=== PATIENT | female | born 1985 | race Caucasian/White ===

== ENCOUNTER 2017-09-16 11:49 | Inpatient (IN) | payer BC ==
[~2017-09-16] VITALS: Ht 170.2 cm; Wt 108.4 kg
[2017-09-16 11:50] VITALS: BP_SYST 128
[2017-09-16] MEDS ORDERED: NACL 0.9% 1,000 ML IV ONE (12:28)
[2017-09-16] MEDS ORDERED: ONDANSETRON HCL 4 MG/2 ML VIAL IVP ONE (12:30)
[2017-09-16] MEDS ORDERED: KETOROLAC TROMETHAMINE 30 MG VIAL IVP ONE (12:45)
[2017-09-16 13:19] LABS: BASOPHILS # (AUTO) 0.2 K/uL (0.0-0.2); HEMATOCRIT 43.5 % (36-48); HEMOGLOBIN 14.4 g/dL (12.0-16.0); LYMPHOCYTES # (AUTO) 1.2 K/uL (1.0-5.5); LYMPHOCYTES % (AUTO) 9.8 % (20.5-51.5); MEAN CORPUSCULAR HEMOGLOBIN 31 pg (27-31); MEAN CORPUSCULAR HGB CONC 33 % (32-36); MEAN CORPUSCULAR VOLUME 92 fL (79.0-98.0); MONOCYTES # (AUTO) 0.4 K/uL (0.0-1.0); NEUTROPHILS # (AUTO) 10.5 K/uL (1.8-7.7); NEUTROPHILS % (AUTO) 85.2 % (40.0-70.0); PLATELET COUNT (AUTO) 331 K/uL (130-430); RED BLOOD CELL COUNT(AUTO) 4.71 MIL/uL (4.2-6.2); RED CELL DISTRIBUTION WIDTH 11.9 % (9.0-15.0); WHITE BLOOD COUNT (AUTO) 12.3 K/uL (4.8-10.8)
[2017-09-16 13:40] LABS: CALCIUM 9.9 mg/dL (8.4-11.0); CREATININE 0.65 mg/dL (0.55-1.30)
[2017-09-16 13:41] LABS: INR 1.1 (0.8-1.2); PROTHROMBIN TIME 10.8 SECS (9.5-12.5)
[2017-09-16 13:44] LABS: ALBUMIN 4.4 g/dL (3.4-4.8); TOTAL BILIRUBIN 0.6 mg/dL (0.0-1.0)
[2017-09-16 15:09] LABS: BLOOD, URINE NEGATIVE (NEGATIVE); CLARITY/URINE CLEAR (CLEAR); GLUCOSE,URINE NEGATIVE (NEGATIVE); KETONES,URINE 3+ (NEGATIVE); LEUKOCYTE ESTERASE ,URINE NEGATIVE (NEGATIVE); NITRITE, URINE NEGATIVE (NEGATIVE); PROTEIN URINE 1+ (NEGATIVE); UROBILINOGEN,URINE 0.2 (0.2-1.0)
[2017-09-16 15:36] LABS: BILIRUBIN,URINE NEGATIVE (NEGATIVE); COLOR,URINE AMBER (YELLOW)
[2017-09-16 15:41] LABS: BACTERIA,URINE FEW /HPF (None Seen); MUCUS,URINE 1+ /LPF (None Seen); RBC,URINE 0-3 /HPF (0-3); WBC,URINE NONE SEEN /HPF (0-3)
[2017-09-16 15:46] VITALS: BP_SYST 127
[2017-09-16 15:48] VITALS: BP_SYST 127
[2017-09-16] MEDS ORDERED: ACETAMINOPHEN 325 MG TABLET PO PRN (19:30)
[2017-09-16] MEDS ORDERED: D5LR 500 ML IV ONE (19:30)
[2017-09-16] MEDS ORDERED: TEMAZEPAM 15 MG CAPSULE PO PRN (19:30)
[2017-09-16] MEDS ORDERED: DIPHENHYDRAMINE HCL 25 MG CAPSULE PO PRN (19:30)
[2017-09-16 20:00] VITALS: BP_SYST 134
[2017-09-16] MEDS: ONDANSETRON HCL 4 MG/2 ML VIAL IVP PRN (20:30)
[2017-09-16] MEDS: PANTOPRAZOLE SODIUM 40 MG/VIAL (PROTONIX) IVP SCH (20:30)
[2017-09-16] MEDS ORDERED: cefTRIAXone 1 GM VIAL ONE (21:11)
[2017-09-16] MEDS: cefTRIAXone 1 GM in D5W 50 ML IV SCH (21:55)
[2017-09-17] VITALS: BP_SYST 117
[2017-09-17 06:49] LABS: BASOPHILS % (AUTO) 0.2 % (0.0-2.0); EOSINOPHILS # (AUTO) 0.1 K/uL (0.0-0.4); EOSINOPHILS % (AUTO) 0.8 % (0.0-4.0); HEMATOCRIT 37.9 % (36-48); HEMOGLOBIN 12.8 g/dL (12.0-16.0); LYMPHOCYTES # (AUTO) 1.8 K/uL (1.0-5.5); LYMPHOCYTES % (AUTO) 21.3 % (20.5-51.5); MEAN CORPUSCULAR HEMOGLOBIN 32 pg (27-31); MEAN CORPUSCULAR HGB CONC 34 % (32-36); MEAN CORPUSCULAR VOLUME 94 fL (79.0-98.0); MONOCYTES # (AUTO) 0.5 K/uL (0.0-1.0); MONOCYTES % (AUTO) 6.1 % (1.7-9.3); NEUTROPHILS # (AUTO) 6.1 K/uL (1.8-7.7); NEUTROPHILS % (AUTO) 71.6 % (40.0-70.0); PLATELET COUNT (AUTO) 263 K/uL (130-430); RED BLOOD CELL COUNT(AUTO) 4.03 MIL/uL (4.2-6.2); RED CELL DISTRIBUTION WIDTH 11.9 % (9.0-15.0); WHITE BLOOD COUNT (AUTO) 8.5 K/uL (4.8-10.8)
[2017-09-17 06:53] LABS: ALBUMIN 3.7 g/dL (3.4-4.8); CALCIUM 9.2 mg/dL (8.4-11.0); CREATININE 0.61 mg/dL (0.55-1.30); POTASSIUM 3.9 mmol/L (3.5-5.1); TOTAL BILIRUBIN 0.6 mg/dL (0.0-1.0)
[2017-09-17 08:00] VITALS: BP_SYST 111
[2017-09-17 08:09] LABS: ERYTHROCYTE SEDIMENTATION RATE 1 MM/HR (0-20)
[2017-09-17] MEDS: PANTOPRAZOLE SODIUM 40 MG/VIAL (PROTONIX) IVP SCH ×2 (08:29→20:40)
[2017-09-17 12:09] VITALS: BP_SYST 111
[2017-09-17] MEDS: ONDANSETRON HCL 4 MG/2 ML VIAL IVP PRN ×3 (12:10→22:07)
[2017-09-17 16:15] VITALS: BP_SYST 115
[2017-09-17 19:30] VITALS: BP_SYST 117
[2017-09-17] MEDS: cefTRIAXone 1 GM in D5W 50 ML IV SCH (20:40)
[2017-09-17] MEDS: MECLIZINE HCL 25 MG TABLET (ANITVERT) PO SCH (20:40)
[2017-09-17] MEDS: P-EPHED SUL/LORATADINE 1 TAB.SR TAB.SR.12H PO SCH (20:40)
[2017-09-17] MEDS ORDERED: NEOMYCIN/POLYMYX B/HYDROCORTISONE 10 ML EAR DROPS.SUSP OT ONE (21:07)
[2017-09-17] MEDS: NEOMYCIN/POLYMYX B/HYDROCORTISONE 10 ML EAR DROPS.SUSP OT SCH (22:06)
[2017-09-18] MEDS: ONDANSETRON HCL 4 MG/2 ML VIAL IVP PRN ×4 (02:44→16:53)
[2017-09-18] MEDS: NEOMYCIN/POLYMYX B/HYDROCORTISONE 10 ML EAR DROPS.SUSP OT SCH ×4 (02:45→15:00)
[2017-09-18 07:54] VITALS: BP_SYST 110
[2017-09-18] MEDS: P-EPHED SUL/LORATADINE 1 TAB.SR TAB.SR.12H PO SCH ×2 (09:13→21:22)
[2017-09-18] MEDS: PANTOPRAZOLE SODIUM 40 MG/VIAL (PROTONIX) IVP SCH ×2 (09:13→21:21)
[2017-09-18] MEDS: MECLIZINE HCL 25 MG TABLET (ANITVERT) PO SCH ×2 (09:13→15:25)
[2017-09-18 12:30] VITALS: BP_SYST 115
[2017-09-18 17:08] VITALS: BP_SYST 107
[2017-09-18 20:00] VITALS: BP_SYST 109
[2017-09-18] MEDS: cefTRIAXone 1 GM in D5W 50 ML IV SCH (21:21)
[2017-09-19 07:07] LABS: BASOPHILS % (AUTO) 0.5 % (0.0-2.0); EOSINOPHILS # (AUTO) 0.1 K/uL (0.0-0.4); EOSINOPHILS % (AUTO) 1.6 % (0.0-4.0); HEMATOCRIT 38.6 % (36-48); HEMOGLOBIN 13.3 g/dL (12.0-16.0); LYMPHOCYTES # (AUTO) 1.9 K/uL (1.0-5.5); LYMPHOCYTES % (AUTO) 20.6 % (20.5-51.5); MEAN CORPUSCULAR HEMOGLOBIN 32 pg (27-31); MEAN CORPUSCULAR HGB CONC 34 % (32-36); MEAN CORPUSCULAR VOLUME 94 fL (79.0-98.0); MONOCYTES # (AUTO) 0.5 K/uL (0.0-1.0); MONOCYTES % (AUTO) 5.9 % (1.7-9.3); NEUTROPHILS # (AUTO) 6.7 K/uL (1.8-7.7); NEUTROPHILS % (AUTO) 71.4 % (40.0-70.0); PLATELET COUNT (AUTO) 270 K/uL (130-430); RED BLOOD CELL COUNT(AUTO) 4.12 MIL/uL (4.2-6.2); RED CELL DISTRIBUTION WIDTH 11.8 % (9.0-15.0); WHITE BLOOD COUNT (AUTO) 9.2 K/uL (4.8-10.8)
[2017-09-19 07:49] LABS: CALCIUM 9.6 mg/dL (8.4-11.0); CREATININE 0.88 mg/dL (0.55-1.30); POTASSIUM 4.1 mmol/L (3.5-5.1)
[2017-09-19 08:00] VITALS: BP_SYST 90
[2017-09-19] MEDS: PANTOPRAZOLE SODIUM 40 MG/VIAL (PROTONIX) IVP SCH (09:38)
[2017-09-19] MEDS: P-EPHED SUL/LORATADINE 1 TAB.SR TAB.SR.12H PO SCH (09:39)
[2017-09-19 09:46] VITALS: BP_SYST 102
[2017-09-19 12:22] VITALS: BP_SYST 103
[2017-09-19 16:15] VITALS: BP_SYST 105
[2017-09-19] MEDS ORDERED: DEXAMETHASONE SOD PHOSPHATE 4 MG/ML VIAL IVP ONE (17:00)
[2017-09-19 18:25] VITALS: BP_SYST 105
== END 2017-09-19 18:50 | disposition home or self-care (01) | DRG 866 ==
LOC: SED 11:49 → SMU 15:01
PROVIDERS: ADMIT Internal Medicine; ATTEND Internal Medicine
DX: B34.9 Viral infection, unspecified (principal); E66.9 Obesity, unspecified; E86.0 Dehydration; Z68.37 Body mass index [BMI] 37.0-37.9, adult; H66.90 Otitis media, unspecified, unspecified ear; H83.09 Labyrinthitis, unspecified ear
CPT/HCPCS: 36415; 71045; 76700-TC; 80048; 80053; 81000-TC; 81025; 82150-TC; 82550-TC; 83605; 83690-TC; 84484; 84703; 85025; 85610-TC; 85651-TC; 85730-TC; 86710; 87040-TC; 93005; 96361; 96374; 96375; 99285; C9113; J0696; J1100; J1885; J2405; J7030; J7060; J8597